=== PATIENT | male | born 1970 | race Caucasian/White ===

== ENCOUNTER 2024-12-26 13:11 | Outpatient (REF) | payer OTHER, SELFPAY ==
[2024-12-26 14:10] LABS: MANUAL DIFF FLAG NO
[2024-12-26 14:19] LABS: Basophils Absolute Auto 0.1 X10*3/uL (0.0-0.2); Basophils Percent Auto 0.7 % (0-2); Eosinophils Absolute Auto 0.1 X10*3/uL (0.0-0.4); Eosinophils Percent Auto 0.9 % (0-4); Hematocrit 42.5 % (42.0-52.0); Hemoglobin 14.3 g/dl (14.0-18.0); Imm Gran Abs Auto 0.03 X10*3/uL (0.00-0.03); Imm Gran Pct Auto 0.4 % (0.0-0.4); Lymphocytes Absolute Auto 0.9 X10*3/uL (1.2-4.9); Lymphocytes Percent Auto 12.9 % (20-40); Mean Corpuscular HGB Conc 33.6 g/dl (31.0-36.0); Mean Corpuscular Hemoglobin 29.3 pg (27.0-33.0); Mean Corpuscular Volume 87.1 fL (80.0-98.0); Mean Platelet Volume 8.8 fL (9.4-12.4); Monocytes Absolute Auto 0.9 X10*3/uL (0.1-1.2); Monocytes Percent Auto 13.5 % (2-11); Neutrophils Absolute Auto 4.8 x10*3/uL (2.0-8.3); Neutrophils Percent Auto 71.6 % (45-73); Platelet Count 333 X10*3/uL (160-400); Red Blood Count 4.88 X10*6/uL (4.60-5.80); Red Cell Distribution Width 11.9 % (11.0-16.0); White Blood Count 6.7 X10*3/uL (4.8-10.8)
[2024-12-26 14:40] LABS: Alanine Aminotransferase 38 U/L (0-40); Albumin Level 4.3 g/dL (3.5-5.0); Alkaline Phosphatase 83 U/L (39-117); Anion Gap 15 (12-20); Aspartate Amino Transferase 27 U/L (5-37); Bilirubin Total 0.5 mg/dL (0.0-1.0); Blood Urea Nitrogen 13 mg/dL (9-16); Calcium 9.3 mg/dL (8.4-10.2); Carbon Dioxide 26 mmol/L (22-29); Chloride 100 mmol/L (96-108); Cholesterol 214 mg/dL (<200); Estimated Glomerular Filt Rate > 60; Glucose Fasting 87 mg/dL (60-99); HDL Cholesterol 33 mg/dL (>40); LDL Cholesterol Calculated 141 mg/dL (<100); Potassium 4.1 mmol/L (3.3-5.1); Sodium 137 mmol/L (135-145); Total Protein 8.2 g/dL (6.5-8.0); Triglycerides 203 mg/dL (<150)
[2024-12-26 15:02] LABS: Prostate Specific Antigen Scr 1.95 ng/mL (<0.05-4.0)
== END 2024-12-26 13:12 | disposition home or self-care (01) ==
LOC: HO.CHCLDS 13:11
PROVIDERS: Visit Provider Internal Medicine
DX: E78.5 Hyperlipidemia, unspecified (principal); K21.9 Gastro-esophageal reflux disease without esophagitis; Z12.5 Encounter for screening for malignant neoplasm of prostate
CPT/HCPCS: 36415; 80053; 80061; 84153; 85025

== ENCOUNTER 2025-01-26 06:35 | Day surgery (SDC) | payer OTHER, SELFPAY ==
--- OUTSIDE RECORDS SUMMARY | 2025-01-24 16:09 | XMS_ITS ---
Author Organization [facility] Address [address] [place] [address] Care Team Providers Care Activities Specialist Name Role Phone Anuj Morris MD Primary Care Provider Daniel Russell Unavailable [phone] Allergies No Known Allergies REASON FOR VISIT Patient presents today for a COLON SCREENING Medications Medication SIG (Take, Route, Fr equency, Duration) Notes Start Date End Date Status Co Q 10 60 MG as directed Orally Active Vitamin E 100 UNIT as directed Orally Active Vitamin D 400 UNIT 2 capsules Orally On ce a day for 30 day(s) Active Creatine - as directed Orally Active Immunizations Vaccine Route Administration Date Status Comme nts Influenza Unknown 09/27/2024 Refused Social History Tobacco Use: Social History Observation Description Date Details (start date - stop date) Never Smoker NA - NA Tobacco Use/Smoking Question Answer Notes Patient is a nonsmoker Alcohol Screen Question Answer Notes Did you have a drink contain ing alcohol in the past year? Yes How often did you have a dri nk containing alcohol in the past year? Monthly or less (1 point) How many drinks did you have on a typical day when you were drinking in the past year? 1 or 2 drinks (0 point) How often did you have 6 or more drinks on one occasion in the past year? Never (0 point) Points 1 Interpretation Negative Section Notes: Nonsmoker; no sig alcohol Problems Problem Type SNOMED Code ICD Code Onset Dates Problem Status W/U Status Risk Notes Problem Screening for malignant neoplasm of colon (699668292) Encounter for screening for malignant neoplasm of colon (Z12.11) Active confirmed Problem History of colon polyps (Z86.0100) Active confirmed Problem Pre-procedure evaluation check (518821427) Encounter for other preprocedural examination (Z01.818) Active confirmed Vital Signs Temperature 98.0 degrees Fahrenheit 09/27/20 24 Blood pressure systolic 000 mm Hg 09/27/20 24 Blood pressure diastolic 00 mm Hg 024 Height 5 ft 11 in in 09/27/2024 Weight 207 lb 4 oz lbs 09/27/2024 BMI 28.90 kg/m2 09/27/2024 Encounters Encounter Location Date Provider Diagnosis [facility] [address] [place] [address] 09/27/2024 Daniel Han Encounter for screen ing for malignant neoplasm of colon Z12.11 ; Encounter for other preprocedural examination Z01.818 and History of colon polyps Z86.0100 Assessments Encounter Date Diagnosis (ICD Code) Assessment Notes Treatment Notes Treatment Clinical Notes Section Notes 09/27/2024 Encounter for screening for malignant neoplasm of colon (ICD-10 - Z12.11) Overall, Brett appears quite well. Given his history of colon polyps and his last colonoscopy being 5 years ago, I did recommend a followup colonoscopy for further screening purposes. We did review the rationale for that in regard to colon cancer prevention. Full consent is obtained for this, including risks of bleeding and perforation. The procedure will be done with monitored anesthesia care. Brett is comfortable with this plan. Thank you again for allowing me to participate in Brett's care. I shall continue to keep you advised of his progress. 09/27/2024 Encounter for other preprocedural examination (ICD-10 - Z01.818) Overall, Brett appears quite well. Given his history of colon polyps and his last colonoscopy being 5 years ago, I did recommend a followup colonoscopy for further screening purposes. We did review the rationale for that in regard to colon cancer prevention. Full consent is obtained for this, including risks of bleeding and perforation. The procedure will be done with monitored anesthesia care. Brett is comfortable with this plan. Thank you again for allowing me to participate in Brett's care. I shall continue to keep you advised of his progress. 09/27/2024 History of colon polyps (ICD-10 - Z86.0100) Overall, Brett appears quite well. Given his history of colon polyps and his last colonoscopy being 5 years ago, I did recommend a followup colonoscopy for further screening purposes. We did review the rationale for that in regard to colon cancer prevention. Full consent is obtained for this, including risks of bleeding and perforation. The procedure will be done with monitored anesthesia care. Brett is comfortable with this plan. Thank you again for allowing me to participate in Brett's care. I shall continue to keep you advised of his progress. Plan Of Treatment Future Test Test Name Order Date COLONOSCOPY 09/27/2024 Next Appt Details Follow Up: prn, Reason: Provider Name:Daniel Han , 01/26/2025 08:30:00 AM, [address] [place] [address], [phone], Progress Notes * LOBO AMOROB:1970 (54 yo M)Acc No.[id number]:09/27/2024 Progress Notes Patient:BRETT JAEGER Provider:?Daniel Han MD :1970???Age:54 Y???Sex:Male Noel e:09/27/2024 Address:[address] [place], [place] [id number] Pcp:Anuj Morris MD Subjective: * Chief Complaints: * ???Patient presents today fo r a COLON SCREENING * HPI: ???incontinence:? I saw Brett in the office today for evaluation of his personal history of colon polyps and need for colorectal cancer screening. ?As you know, Brett is a healthy 54-year-old male who presently feels well. He enjoys a good appetite, without any significant heartburn nor dysphagia. His bowel movements have been regular and without any signs of bleeding. He denies any abdominal pain, jaundice, nor unintentional weight loss. He denies any known family history of colon cancer, Although his father did have colon polyps. ?Brett describes 2 previous colonoscopies with Dr. Eason. His first one at age 44 revealed 2 polyps that were removed according to his recollection. He had a subsequently negative colonoscopy at age 49 and was advised to have a repeat exam in 5 years. * ROS:?General/Constitutional:?Change in appetite?denies.?Chills?denies.?Fatigue?denies.?Ophthalmologic:?Comments?all negative.?ENT:?Comments?all negative.?Respiratory:?hemoptysis?denies.?Cough?denies.?Cardiovascular:?Chest pain?denies.?Orthopnea?denies.?Gastrointestinal:?Comments?See HPI for details.?Genitourinary:?Hematuria?denies.?Dysuria?denies.?Musculoskeletal:?Painful joints?denies.?Weakness?denies.?Skin:?Itching?denies.?Rash?denies.?Neurologic:?Headache?denies.?Seizures?denies.?Psychiatric:?Comments?all negative.? * Medical History:? * Surgical History:?Beata Pas t Surgical History * Hospitalization/Major Diagno stic Procedure:?No Hospitalization History. * Family History:?Father: chanelle rosales, diagnosed with Heart disease.?Mother: alive, diagnosed with HTN (hypertension).? No family history of colon cancer or liver cancer. * Social History:?Tobacco Use:?Tobacco Use/Smoking?Patient is a?nonsmoker.?Drugs/Alcohol:?Alcohol Screen?Did you have a drink containing alcohol in the past year??Yes,?How often did you have a drink containing alcohol in the past year??Monthly or less (1 point), How many drinks did you have on a typical day when you were drinking in the past year??1 or 2 drinks (0 point),?How often did you have 6 or more drinks on one occasion in the past year??Never (0 point),?Points?1,?Interpretation?Negative.?Miscellaneous:?Marital status: . Occupation: machine tool mechanic. ???Nonsmoker; no sig alcohol. * Medications:?TakingCo Q 10 6 0 MG Capsule as directed Orally Vitamin D 400 UNIT Capsule 2 capsules Orally Once a dayVitamin E 100 UNIT Capsule as directed Orally Creatine - Powder as directed Orally Medication List reviewed and reconciled with the patientTaking Co Q 10 60 MG Capsule as directed Orally Taking Vitamin D 400 UNIT Capsule 2 capsules Orally Once a dayTaking Vitamin E 100 UNIT Capsule as directed Orally Taking Creatine - Powder as directed Orally Medication List reviewed and reconciled with the patient * Allergies:?N.K.D.A.yes[Aller gies Verified] Objective: * Vitals:?Wt: 207 lb 4 oz, Ht: 5 ft 11 in, BMI:28.90 Index, BP: 000/00 mm Hg, Temp: 98.0. * Examination: ???General Examination: ?GENERAL APPEARANCE:?pleasant, well nourished, well developed, in no acute distress.?EYES:?sclera non-icteric.?ORAL CAVITY:?mucosa moist.?NECK/THYROID:?no cervical lymphadenopathy, neck supple.?SKIN:?nonjaundiced, no spider angiomata.?HEART:?S1, S2 normal.?LUNGS:?clear to auscultation bilaterally.?ABDOMEN:?normal bowel sounds, no guarding or rigidity, no guarding or rigidity, no masses palpable, soft, nontender, nondistended.?EXTREMITIES:?no edema.?NEUROLOGIC:?alert and oriented.? Assessment: * Assessment: 1.?Encounter for other prepr ocedural examination - Z01.818 (Primary)?2.?Encounter for screening for malignant neoplasm of colon - Z12.11?3.?History of colon polyps - Z86.0100? Overall, Brett appears quite well. Given his history of colon polyps and his last colonoscopy being 5 years ago, I did recommend a followup colonoscopy for further screening purposes. We did review the rationale for that in regard to colon cancer prevention. Full consent is obtained for this, including risks of bleeding and perforation. The procedure will be done with monitored anesthesia care. Brett is comfortable with this plan. Thank you again for allowing me to participate in Brett's care. I shall continue to keep you advised of his progress. Plan: * Treatment: 2.?History of colon polyps?Procedure: COLONOSCOPY (Ordered for 09/27/2024)* with MAC09/27/2024-[place] [address], reference [id number]. * Immunizations:? Influenza (Not administered - Refused: Patient decision) * Procedure Codes:?3017F COLOR ECTAL CA SCREEN DOC [id number] TOBACCO NON-PSVCD8464 BP SCR NOT PRFRM REC REASON NOS * Preventive Medicine:? ??Counseling:?Care goal follow-up plan:?Above Normal BMI Follow-up?Giving encouragement to exercise,?BMI management provided?Yes.? * Follow Up:?prn * * Sign off status: Completed true * Provider:?Daniel Han MD Date:? 024 Generated for Tolu sargent/Kolby/eTransmitting on:?01/24/2025 04:09 PM EST History and Physical Notes * HPI (History of Present Illness) Category Sub-Category Detail Notes Category Not es incontinence I saw Brett in the office today for evaluation of his personal history of colon polyps and need for colorectal cancer screening. As you know, Brett is a healthy 54-year-old male who presently feels well. He enjoys a good appetite, without any significant heartburn nor dysphagia. His bowel movements have been regular and without any signs of bleeding. He denies any abdominal pain, jaundice, nor unintentional weight loss. He denies any known family history of colon cancer, Although his father did have colon polyps. Brett describes [address] Eason. His first one at age 44 revealed 2 polyps that were removed according to his recollection. He had a subsequently negative colonoscopy at age 49 and was advised to have a repeat exam in 5 years. Examination Category Sub-Category Detail Notes Category Not es General Examination GENERAL APPEARANCE: pleasant , well nourished, well developed, in no acute distress HEAD: EYES: sclera non-icteric EARS: NOSE: THROAT: NECK/THYROID: no cervical lymphade nopathy, neck supple HEART: S1, S2 normal CHEST: LUNGS: clear to auscultatio n bilaterally ABDOMEN: normal bowel sounds, no guarding or rigidity, no guarding or rigidity, no masses palpable, soft, nontender, nondistended NEUROLOGIC: alert and oriented SKIN: nonjaundiced, no spi arpit angiomata EXTREMITIES: no edema PERIPHERAL PULSES: BACK: BREASTS: MUSCULOSKELETAL: MALE GENITOURINARY: LYMPH NODES: RECTAL EXAM: FEMALE GENITOURINARY: ORAL CAVITY: mucosa moist
--- OUTSIDE RECORDS SUMMARY | 2025-01-24 16:09 | XMS_ITS | Patient Health Record ---
Author Organization [facility] Address [address] [place] [address] Care Team Providers Care Ux Information Architect Name Role Phone Anuj Morris MD Primary Care Provider Daniel Russell Unavailable [phone] Allergies No Known Allergies Reason For Referral No Information Medications Medication SIG (Take, Route, Fr equency, [...] Problem Screening for malignant neoplasm of colon (227470588) Encounter for screening for malignant neoplasm of colon (Z12.11) Active confirmed Problem Pre-procedure evaluation check (269449616) Encounter for other preprocedural examination (Z01.818) Active confirmed Problem History of colon polyps (Z86.0100) Active confirmed Vital Signs Temperature 98.0 degrees Fahrenheit 09/27/2024 Blood pressure diastolic 00 mm Hg 09/27/2024 Height 5 ft 11 in in 09/27/2024 Blood pressure systolic 000 mm Hg 09/27/2024 Weight 207 lb 4 oz lbs 09/27/2024 BMI 28.90 kg/m2 09/27/2024 Encounters Encounter Location Date Provider Diagnosis [facility] [address] [place] [address] 09/27/2024 Daniel Han Encounter for screen ing [...] Order Date COLONOSCOPY 09/27/2024 Next Appt Details Provider Name:Daniel Han , 01/26/2025 08:30:00 AM, [address] [place] [address], [phone], Insurance Providers Payer Name Payer Address Payer Phone Subscriber Number Group Number Insured Name Patient Relationship to Insured Coverage Start Date Coverage End Date [employer] [address] [place] [address] [id number] BRETT AMOR Self - patient is the insured Medical (General) History Medical History History ICD Code Denies [place],DM,CVA,Lung disease,renal dise ase 2 screening colonoscopies wi Dr. Eason--age 44 with 2 polyps removed, age 49 was negative Surgical History Surgery Date(Month/Year)
--- NOTE | 2025-01-25 08:44 | HO.ANESPROP2 ---
HPI - Anesthesia Eval Consult details Narrative: 54yo M for Colonoscopy PMFSH Past Medical History Medical History (Updated 01/24/25 @ 14:54 by Daphney Richter, RN) Elevated cholesterol Surgical History Surgical History (Updated 01/24/25 @ 14:54 by Daphney Richter, QUYEN) H/O colonoscopy Social History Social History (Updated 01/24/25 @ 14:55 by Daphney Richter, QUYEN) Patient Tobacco Use Status: Never used Tobacco Meds Allergies Allergy/AdvReac Type Severity Reaction Status Date / Time No Known Allergies Allergy Unverified 08/08/20 16:43 [No Known Allergies*] Exam Height,Weight and Vital Signs: Height 5 ft 11 in Assessment and Plan Assessment Anesthesia Assessment: Chart Reviewed
[2025-01-26 07:17] VITALS: BMI 28.4
[2025-01-26 07:21] VITALS: BP 125/68; PULSE 63; RESP 16; TEMP 36.3; O2SAT 95
[2025-01-26] MEDS: Lactated Ringers 1,000 ML 100 ML IVCONT (07:34)
--- NOTE | 2025-01-26 08:03 | HO.ANESPROP2 ---
[facility] Past Medical History Medical History Elevated cholesterol Functional capacity: independent ambulation Family History Family history of problems with anesthesia: No Surgical History Surgical History H/O colonoscopy History of Problems with Anesthesia: No Social History Social History Patient Tobacco Use Status: Never used Tobacco Use of substances other than those prescribed or required for medical reasons: No Are you DNR?: No Advance Directives: No Advance Directives Information Provided: Yes Recently lost weight without trying: No Nutrition Risks: No Nutritional Risk Poor oral hygiene: No Meds Allergies Allergy/AdvReac Type Severity Reaction Status Date / Time No Known Allergies Allergy Verified 01/26/25 07:16 [No Known Allergies*] Active Medications: Current Medications Lactated Ringer's (Lr) 1,000 mls @ 100 mls/hr IVCONT .Q10H PB Last Admin: 01/26/25 07:34 Dose: 100 mls/hr Sodium Biphosphate/Sodium Phosphate (Sodium Phosphate,[place]-Dibasic 133 Ml Enema) 133 ml DC ONCE PRN PRN Reason: Poor Colonoscopy Prep Results Exam Height,Weight and Vital Signs: Height 5 ft 11 in Weight 92.5 kg Last Vital Signs Temp 97.3 F 01/26/25 07:21 Pulse 63 01/26/25 07:21 Resp 16 01/26/25 07:21 BP 125/68 01/26/25 07:21 Pulse Ox 95 01/26/25 07:21 O2 Del Method Room Air 01/26/25 07:21 Airway Mallampati Class: III TM Dist: >3cm Neck ROM: Full Heart: RRR Lungs: CTA Assessment and Plan Assessment Anesthesia Assessment: Anesthesia Plan Discussed and Chart Reviewed Final Anesthetic Review Family History of Problems with Anesthesia: No History of Problems with Anesthesia: No NPO: Yes ASA Class: I Final Preanesthetic Review: Meds/Allgs Chart Reviewed, Consent Obtained/Reviewed and Anes Risks/Benef Reviewed Patient Risk: Low Procedure Risk: Low Anesthetic Plan Anesthetic Plan: MAC: Disposition: Standard PACU
[2025-01-26 09:24] VITALS: BP 94/84; PULSE 67; RESP 16; TEMP 36.2; O2SAT 97
--- NOTE | 2025-01-26 09:27 | P.BOP_ITS ---
Brief Operative Note Date of Service: 01/26/25 Pre-op diagnosis: Screening Post-op diagnosis: other (Diverticulosis) Procedure: Colonoscopy to cecum and TI Surgeon: Daniel Han MD Anesthesia: MAC Was an Senior Windows Engineer used for this Procedure?: No Estimated blood loss (mL): 0 Pathology: none sent Condition: stable Disposition: PACU
[2025-01-26 09:39] VITALS: BP 117/81; PULSE 63; RESP 16; TEMP 36.2; O2SAT 98
--- NOTE | 2025-01-26 09:49 | OP_ITS ---
DATE OF SERVICE: 01/26/2025 SURGEON: Daniel Han MD INDICATIONS: The patient presents for evaluation of personal history of tubular adenoma of the colon and colorectal cancer screening. Full consent obtained from him for this, including risks of bleeding and perforation. PREOPERATIVE DIAGNOSIS: Colorectal cancer screening and personal history of tubular adenoma of the colon. POSTOPERATIVE DIAGNOSIS: PROCEDURE PERFORMED: Colonoscopy to the cecum and terminal ileum. ESTIMATED BLOOD LOSS: COMPLICATIONS: ANESTHESIA: Monitored anesthesia care. ASSISTANTS: SPECIMENS: POSTOPERATIVE DIAGNOSES: Colorectal cancer screening and personal history of tubular adenoma of the colon, diverticulosis and internal hemorrhoids. DESCRIPTION OF PROCEDURE: The patient was placed in left lateral decubitus position. The digital rectal exam revealed no abnormalities. The Olympus video pediatric colonoscope was entered into the rectum and advanced easily to the cecum. Once in the cecum, I did identify normal-appearing cecal pouch with appendiceal orifice and a normal-appearing ileocecal valve. The terminal ileum was cannulated and appeared normal. The scope was withdrawn back in the colon. The entire cecum and ileocecal valve appeared normal. The scope was slowly withdrawn assessing all mucosal surfaces carefully. Preparation was excellent. I did not visualize any sign of polyps, colitis, nor angiodysplasia. There was a mild amount of sigmoid diverticulosis. In the rectum, scope was retroflexed visualizing internal hemorrhoids, but no other pathology. The rectal mucosa appeared normal. The scope was straightened and withdrawn from the patient. He tolerated the procedure well and was returned to the recovery area in stable condition. IMPRESSION: 1. Diverticulosis. 2. Internal hemorrhoids. PLAN: Given his previous history of tubular adenoma, I would recommend a followup coloscopy in 5 years. He will otherwise see me on a p.r.n. basis. MD PRAMOD Patel/[facility] / [id number]
== END 2025-01-26 10:10 | disposition home or self-care (01) ==
PROVIDERS: PCP Internal Medicine; Visit Provider Internal Medicine
PROC: 0DJD8ZZ Inspection of Lower Intestinal Tract, Via Natural or Artificial Opening Endoscopic (ICD-10-PCS; CPT 45378; principal; 2025-01-26 08:30)
DX: Z12.11 Encounter for screening for malignant neoplasm of colon (principal); Z86.0101 Personal history of adenomatous and serrated colon polyps; K57.30 Diverticulosis of large intestine without perforation or abscess without bleeding; K64.8 Other hemorrhoids; Z79.899 Other long term (current) drug therapy
CPT/HCPCS: 45378; J2003; J2704